=== PATIENT | female | born 1995 | race Caucasian/White ===

== ENCOUNTER → 2021-12-04 | Day surgery (SDC) | payer OTHER ==
[~2021-12-04] MED LIST: ACYCLOVIR200 MG PO; CIPRO500 MG PO; COLACE 100MG C100 MG PO; FLAGYL500 MG PO; GUMMIES GIRLS'1 EACH PO; MACROBID 100 M100 MG PO; NORCO 5-325 TA1 EACH PO; PAXIL10 MG PO; TENORMIN 25 MG25 MG PO; VISTARIL25 MG PO; WELLBUTRIN XL300 MG PO; ZOFRAN 4 MG TAB4 MG PO
[2021-12-04 09:58] LABS: HEMOGLOBIN 13.1 gm/dl (12.3-15.3); RED BLOOD COUNT 4.33 M/UL (4.00-5.10)
== END | disposition home or self-care (01) ==
LOC: OR 07:30
PROVIDERS: Obstetrics & Gynecology
DX: O02.0 Blighted ovum and nonhydatidiform mole (principal); Z29.13 Encounter for prophylactic Rho(D) immune globulin; I47.1 Supraventricular tachycardia; F17.210 Nicotine dependence, cigarettes, uncomplicated; E66.9 Obesity, unspecified; Z68.28 Body mass index [BMI] 28.0-28.9, adult; Z79.899 Other long term (current) drug therapy
CPT/HCPCS: 36415; 81001; 85025; J1100; J1170; J1885; J2001; J2250; J2405; J2704; J3010; J7120